=== PATIENT | male | born 1955 | race Caucasian/White ===

== ENCOUNTER 2019-11-25 08:50 | Day surgery (SDC) | payer OTHER ==
[2019-11-21 16:22] VITALS: BMI 26.5
[2019-11-25] MEDS ORDERED: PROPOFOL 20 ML ONE (11:02)
[2019-11-25] MEDS ORDERED: MIDAZOLAM HCL 2 MG/2 ML SINGLE DOSE VIAL ONE (11:02)
[2019-11-25] MEDS ORDERED: KETOROLAC TROMETHAMINE 30 MG/1 ML VIAL ONE (11:02)
--- NOTE | 2019-11-25 11:37 | OP ---
Operative Note - Note: Operative Date: 11/25/19 Pre-Operative Diagnosis: Rright renal stones Operation: Right ESWL Findings: 3 mm and 3 mm lower pole Right renal stones Post-Operative Diagnosis: Same as Pre-op Anesthesia: Fractional Estimated Blood Loss (mls): 0 Operative Report Dictated: Yes
[2019-11-25 12:48] VITALS: BP 136/79; PULSE 62; TEMP 98.5
--- NOTE | 2019-11-25 20:49 | OP ---
DATE OF OPERATION: 11/25/2019 PREOPERATIVE DIAGNOSIS: Right renal stone. POSTOPERATIVE DIAGNOSIS: Right renal stone. PROCEDURE: Extracorporeal shockwave lithotripsy. ATTENDING: Scottie La MD. ANESTHESIA: Fractional. DESCRIPTION OF PROCEDURE: Patient was brought in the operating room, placed in a supine position on the operating room table. Ultrasonography and fluoroscopy were performed. 2 stones in the right kidney were identified, 1 in the mid right mid pole and 1 in the right lower pole calyces. Once these were identified, anesthesia and preoperative antibiotics were administered. Shockwave lithotripsy was then started, 1000 impulses at 17 joules of power was administered to the 3-mm stone, 1500 impulses at 17 joules of power were administered to the lower pole stone. Excellent fragmentation of the stones was noted under real time ultrasonography and fluoroscopy. No complications were noted. The patient tolerated the procedure very well. SCOTTIE HUI M.D. [id number]
== END 2019-11-25 13:15 | disposition left against medical advice (07) ==
LOC: JASU-SURG 08:50
PROVIDERS: ATTEND Urology
PROC: 0TF3XZZ Fragmentation in Right Kidney Pelvis, External Approach (ICD-10-PCS; principal; 2019-11-25 11:00)
DX: N20.0 Calculus of kidney (principal)